=== PATIENT | female | born 1950 | race American Indian/Alaskan Native ===

== ENCOUNTER 2021-02-07 12:17 | Emergency (ER) | payer OTHER ==
[2021-02-07 12:35] VITALS: BP 166/82
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
--- NOTE | 2021-02-07 13:31 | XRay Report ---
CERVICAL SPINE 3 VIEWS INDICATION: neck injury COMPARISON: None. FINDINGS: No acute, displaced fracture is seen. Alignment is within normal limits. Anterior marginal osteophytes are noted at the mid to lower cervical spine. Disc space height is rela tively maintained. CONCLUSION: 1. No acute findings. 2. Degenerative changes, as above. Signer Name: Remi Morel MD Signed: 02/07/2021 1:27 PM Workstation Name: [id number]
== END 2021-02-07 17:46 | disposition home or self-care (01) ==
LOC: ED 12:17
DX: M54.2 Cervicalgia (principal); V49.49XA Driver injured in collision with other motor vehicles in traffic accident, initial encounter; Y93.89 Activity, other specified; Y92.89 Other specified places as the place of occurrence of the external cause; Y99.8 Other external cause status; L30.9 Dermatitis, unspecified; Z90.710 Acquired absence of both cervix and uterus; Z98.890 Other specified postprocedural states; Z88.0 Allergy status to penicillin; Z91.040 Latex allergy status
CPT/HCPCS: 72040; 99283